=== PATIENT | male | born 1985 | race Caucasian/White ===

== ENCOUNTER → 2020-06-12 10:57 | Outpatient (CLI) | payer BC, SELFPAY ==
--- NOTE | ~2020-06-12 | MR_ITS ---
EXAMINATION: MR brain/brain stem wo/w con EXAM DATE: 06/12/2020 12:00 INDICATION: Hyperprolactinemia. Abnormal testosterone levels. TECHNIQUE: Magnetic resonance imaging (MRI) of the brain/brain stem obtained without contrast. Sagit ines T1, axial diffusion, gradient echo (T2*), T1, T2, FLAIR sequences obtained. Patient was then inj ected with 19 cc intravenous Multihance contrast. Axial and coronal postcontrast T1 weighted sequence s obtained. A pituitary protocol was utilized including dynamic imaging through the pituitary gland d uring intravenous injection of contrast. There are no prior studies for comparison. FINDINGS: Pituitary stalk is deviated to the left, with bilobulated appearance to the pituitary gland which could be from enlargement on the right side, could be a microadenoma measuring 6 x 8 mm, altho ugh this does appear to enhance to similar extent as the left side of the pituitary tissue and multip le coronal sequences obtained during contrast injection. The pituitary gland is confined to the sella turcica. Suprasellar region normal in appearance. The optic chiasm normal. There are no areas of restricted diffusion to suggest acute infarction. There is no acute hemorrhage seen on the T2*, a hemosiderin sensitive sequence. No intraparenchymal brain mass. The ventricles a re normal in size. There are no extra-axial collections. Flow voids are seen in the cerebral arteri es on the T2-weighted sequences consistent with their expected patency. The orbits are unremarkable. Soft tissue is unremarkable. 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 Reviewed, dictated and finalized at location B.
[2020-06-12 11:29] LABS: Estimated Glomerular Filt Rate > 60
== END ==
PROVIDERS: PCP Internal Medicine; Visit Provider Internal Medicine
DX: E22.1 Hyperprolactinemia (principal); E34.9 Endocrine disorder, unspecified; R93.89 Abnormal findings on diagnostic imaging of other specified body structures
CPT/HCPCS: 70553; A9577